=== PATIENT | female | born 1990 | race Two or more races ===

== ENCOUNTER 2019-08-13 16:16 | Emergency (ER) | payer OTHER ==
[~2019-08-13] VITALS: Ht 172.7 cm; Wt 63.5 kg
[2019-08-13] MEDS ORDERED: PRENA1 CHEW TA1.4 MG (16:30)
== END 2019-08-13 22:11 | disposition home or self-care (01) ==
LOC: ER 16:16
DX: O26.892 Other specified pregnancy related conditions, second trimester (principal); K52.89 Other specified noninfective gastroenteritis and colitis; Z34.02 Encounter for supervision of normal first pregnancy, second trimester

== ENCOUNTER 2020-02-03 15:15 | Inpatient (IN) | payer OTHER ==
[~2020-02-03] VITALS: Ht 172.7 cm; Wt 72.1 kg
[~2020-02-03 15:15] MED LIST: PRENA1 CHEW TA1.4 MG
== END 2020-02-18 15:00 | disposition home or self-care (01) | DRG 807 ==
LOC: LDR 02-16 10:07 → OB/GYN 02-16 16:40 → SURG-SUITE 02-16 18:51 → OB/GYN 02-20 15:15
PROVIDERS: ADMIT Obstetrics & Gynecology; ATTEND Obstetrics & Gynecology
PROC: 10E0XZZ Delivery of Products of Conception, External Approach (ICD-10-PCS; principal; 2020-02-16)
PROC: 0HQ9XZZ Repair Perineum Skin, External Approach (ICD-10-PCS; 2020-02-16)
PROC: 3E033VJ Introduction of Other Hormone into Peripheral Vein, Percutaneous Approach (ICD-10-PCS; 2020-02-16)
PROC: 4A1HXCZ Monitoring of Products of Conception, Cardiac Rate, External Approach (ICD-10-PCS; 2020-02-16)
DX: O70.0 First degree perineal laceration during delivery (principal); Z37.0 Single live birth; Z3A.39 39 weeks gestation of pregnancy; Z20.828 Contact with and (suspected) exposure to other viral communicable diseases